=== PATIENT | female | born 1970 | race Caucasian/White ===

== ENCOUNTER 2019-06-13 20:26 | Emergency (ER) | payer OTHER, MEDICAID ==
[~2019-06-13] VITALS: Ht 165.1 cm; Wt 122.5 kg
[~2019-06-13 20:26] MED LIST: CIPROFLOXACIN500 M1 PO; DEPAKOTE; KEPPRA 500 MG500 MG; LASIX; LYRICA100 MG; PERCOCET 5-3251 EACH PO; ZESTORETIC
[2019-06-13 20:42] VITALS: BP 118/67
[2019-06-13] MEDS ORDERED: SYMBICORT160 MCG/4. INH (20:47)
[2019-06-13] MEDS ORDERED: SINGULAIR 10 MG10 M1 PO (20:47)
[2019-06-13] MEDS ORDERED: DIAMOX (20:48)
[2019-06-13] MEDS ORDERED: CLARITIN10 M3 PO (20:48)
[2019-06-13] MEDS ORDERED: RELAFEN DS1000 MG PO (20:49)
[2019-06-13] MEDS ORDERED: ZANAFLEX2 M1 PO (21:08)
== END 2019-06-13 21:24 | disposition home or self-care (01) ==
LOC: M.ERS 20:26
DX: S39.012A Strain of muscle, fascia and tendon of lower back, initial encounter (principal); M79.7 Fibromyalgia; Z86.73 Personal history of transient ischemic attack (TIA), and cerebral infarction without residual deficits; Z87.19 Personal history of other diseases of the digestive system; Z88.1 Allergy status to other antibiotic agents; Z88.5 Allergy status to narcotic agent; Z88.8 Allergy status to other drugs, medicaments and biological substances; X58.XXXA Exposure to other specified factors, initial encounter; Y93.89 Activity, other specified; Y92.89 Other specified places as the place of occurrence of the external cause; Y99.8 Other external cause status

== ENCOUNTER 2021-09-08 18:00 | Inpatient (IN) | payer OTHER, MEDICAID ==
[~2021-09-08] VITALS: Ht 162.6 cm; Wt 132.0 kg
[~2021-09-08 18:00] MED LIST changes: +CLARITIN10 M3 PO; +DIAMOX; +RELAFEN DS1000 MG PO; +SINGULAIR 10 MG10 M1 PO; +SYMBICORT160 MCG/4. INH; +ZANAFLEX2 M1 PO
[2021-09-08 18:09] VITALS: BP 131/77
[2021-09-08] MEDS ORDERED: IBUPROFEN 800800 M1 PO (18:15)
[2021-09-08] MEDS ORDERED: LISINOPRIL20 MG PO (18:15)
[2021-09-08] MEDS ORDERED: VIT D PO (18:16)
[2021-09-08] MEDS ORDERED: B12 ACTIVE1000 MCG PO (18:16)
[2021-09-08] MEDS ORDERED: PLAQUENIL200 MG PO (18:16)
[2021-09-08 18:41] LABS: ABSOLUTE BASOPHILS 0.1 thou/uL (0.0-0.2); ABSOLUTE EOSINOPHILS 0.3 thou/uL (0.0-0.7); ABSOLUTE LYMPHOCYTES 2.9 thou/uL (0.8-5.3); ABSOLUTE MONOCYTES 1.1 thou/uL (0.0-1.2); ABSOLUTE NEUTROPHILS 11.1 thou/uL (1.6-8.1); BASOPHILS 0.9 %; EOSINOPHILS 1.9 %; HEMOGLOBIN 15.3 gm/dL (12.0-15.0); LYMPHOCYTES 18.6 %; MCH 27.9 pg (26.0-34.0); MCHC 31.9 g/dL (28.0-37.0); MCV 87.7 fL (80.0-100.0); MONOCYTES 7.1 %; MPV 7.6 fl. (7.2-11.1); NUCLEATED RBCS 0 /100WBC; PLATELET COUNT* 234 thou/uL (150-400); POLYS 71.5 %; RBC 5.48 mil/uL (4.20-5.00); RDW-CV 14.8 % (10.5-14.5); WBC 15.6 thou/uL (4.0-11.0)
[2021-09-08 18:53] LABS: CALCIUM 8.1 mg/dL (8.5-10.1); CREATININE 0.8 mg/dL (0.6-1.3); POTASSIUM 3.5 mmol/L (3.5-5.1)
[2021-09-08 18:58] LABS: TOTAL BILIRUBIN 0.4 mg/dL (<0.1-1.0); TOTAL PROTEIN 6.2 g/dL (6.4-8.2)
[2021-09-08 19:26] LABS: URINE BILIRUBIN NEGATIVE (Negative); URINE BLOOD NEGATIVE (Negative); URINE CLARITY CLEAR; URINE COLOR YELLOW; URINE GLUCOSE-RANDOM NEGATIVE (Negative); URINE KETONES NEGATIVE (Negative); URINE LEUKOCYTES-REFLEX NEGATIVE (Negative); URINE NITRITE-REFLEX NEGATIVE (Negative); URINE PROTEIN NEGATIVE (Negative); URINE SPECIFIC GRAVITY <= 1.005 (1.005-1.030); URINE UROBILINOGEN 0.2 E.U./dl (0.2-1.0)
[2021-09-08 22:20] VITALS: BP 110/56
[2021-09-08 23:00] VITALS: BP 110/70
[2021-09-09 04:00] VITALS: BP 102/60
[2021-09-09 05:59] LABS: HEMATOCRIT 47.6 % (37.0-47.0); HEMOGLOBIN 14.9 gm/dL (12.0-15.0); MCH 27.9 pg (26.0-34.0); MCHC 31.3 g/dL (28.0-37.0); MCV 89.2 fL (80.0-100.0); RBC 5.34 mil/uL (4.20-5.00)
[2021-09-09 06:30] LABS: ALBUMIN 2.9 g/dL (3.4-5.0); CALCIUM 8.2 mg/dL (8.5-10.1); CREATININE 0.7 mg/dL (0.6-1.3); MAGNESIUM 2.1 mg/dL (1.8-2.4); POTASSIUM 3.4 mmol/L (3.5-5.1); TOTAL BILIRUBIN 0.3 mg/dL (<0.1-1.0); TOTAL PROTEIN 6.3 g/dL (6.4-8.2)
--- NOTE | 2021-09-09 11:01 | EKG ---
[place] [address] ELECTROCARDIOGRAM REPORT Name: VIETPAM Hebert Room: [address] ADM IN ..#: [id number] Admission: 09/08/21 Attend Phys: Indy Bagley, Discharge: Date of : 70 Date of Service: 09/08/21 190 Report #: [id number] THIS REPORT FOR: //name// [facility] ED Test Date: 2021-09-08 Test Time: 19:03:26 Pat Name: PAM LLANOS Department: Room: [facility] Gender: F Employment Trainer: TDS : 1970 Requested By: Pilar Hudson Order Number: [id number] MD: Nelson Peng Measurements Intervals [place] Rate: 88 P: 83 AK: 164 QRS: -84 QRSD: 130 T: 17 QT: 392 QTc: 475 Interpretive Statements Sinus rhythm Probable left atrial enlargement Nonspecific IVCD with LAD Inferior infarct, old Compared to ECG 05/24/2009 23:26:42 Intraventricular conduction delay now present Myocardial infarct finding now present Left-axis deviation persists Electronically Signed On 09-09-2021 11:01:12 BREEDER HEN SERVICE TECHNICIAN by Nelson Peng [email or web address] <ELECTRONICALLY SIGNED> By: Nelson Peng MD, FACC 09/09/21 1101 02 02 Nelson Peng MD, FAC /EPI
[2021-09-09 12:00] VITALS: BP 131/74
== END 2021-09-09 15:15 | disposition still patient (30) | DRG 177 ==
LOC: M.ERS 18:00 → M.TBA-ER 21:06 → M.2W 22:06
PROVIDERS: Physician Assistant; ADMIT Internal Medicine; ATTEND Internal Medicine
DX: J15.6 Pneumonia due to other Gram-negative bacteria (principal); J96.01 Acute respiratory failure with hypoxia; K57.92 Diverticulitis of intestine, part unspecified, without perforation or abscess without bleeding; E44.1 Mild protein-calorie malnutrition; L03.116 Cellulitis of left lower limb; R65.10 Systemic inflammatory response syndrome (SIRS) of non-infectious origin without acute organ dysfunction; Z20.822 Contact with and (suspected) exposure to COVID-19; F17.210 Nicotine dependence, cigarettes, uncomplicated; E66.01 Morbid (severe) obesity due to excess calories; Z68.42 Body mass index [BMI] 45.0-49.9, adult; Z86.73 Personal history of transient ischemic attack (TIA), and cerebral infarction without residual deficits; Z88.6 Allergy status to analgesic agent; Z88.1 Allergy status to other antibiotic agents; Z88.8 Allergy status to other drugs, medicaments and biological substances; Z99.3 Dependence on wheelchair

== ENCOUNTER 2021-09-10 22:02 | Emergency (ER) | payer OTHER, MEDICAID ==
[~2021-09-10] VITALS: Ht 162.6 cm; Wt 86.2 kg
[~2021-09-10 22:02] MED LIST changes: +B12 ACTIVE1000 MCG PO; +IBUPROFEN 800800 M1 PO; +LISINOPRIL20 MG PO; +PLAQUENIL200 MG PO; +VIT D PO
[2021-09-11 01:49] LABS: HEMATOCRIT 47.4 % (37.0-47.0); HEMOGLOBIN 14.8 gm/dL (12.0-15.0); MCH 27.6 pg (26.0-34.0); MCHC 31.2 g/dL (28.0-37.0); MCV 88.3 fL (80.0-100.0); MPV 8.3 fl. (7.2-11.1); NUCLEATED RBCS 0 /100WBC; PLATELET COUNT* 200 thou/uL (150-400); RBC 5.37 mil/uL (4.20-5.00); RDW-CV 14.9 % (10.5-14.5); WBC 21.8 thou/uL (4.0-11.0)
[2021-09-11 01:55] LABS: CALCIUM 8.3 mg/dL (8.5-10.1); CREATININE 0.9 mg/dL (0.6-1.3); POTASSIUM 3.4 mmol/L (3.5-5.1)
[2021-09-11 01:59] LABS: ALBUMIN 2.7 g/dL (3.4-5.0); TOTAL BILIRUBIN 0.5 mg/dL (<0.1-1.0); TOTAL PROTEIN 6.2 g/dL (6.4-8.2)
[2021-09-11 02:21] LABS: ABSOLUTE LYMPHOCYTES 2.8 thou/uL (0.8-5.3); ABSOLUTE MONOCYTES 1.5 thou/uL (0.0-1.2); ABSOLUTE NEUTROPHILS 17.4 thou/uL (1.6-8.1)
[2021-09-11 02:22] LABS: PLATELET ESTIMATE ADEQUATE
[2021-09-11 02:40] VITALS: BP 120/68
== END 2021-09-11 02:40 | disposition home or self-care (01) ==
LOC: M.ERS 22:02
PROVIDERS: Personal Emergency Response Attendant
DX: M79.652 Pain in left thigh (principal); M25.552 Pain in left hip; M54.50 Low back pain, unspecified; M79.89 Other specified soft tissue disorders; M79.7 Fibromyalgia; Z86.73 Personal history of transient ischemic attack (TIA), and cerebral infarction without residual deficits; Z79.899 Other long term (current) drug therapy; Z88.1 Allergy status to other antibiotic agents; Z88.8 Allergy status to other drugs, medicaments and biological substances; W17.89XA Other fall from one level to another, initial encounter; Y93.E8 Activity, other personal hygiene; Y92.091 Bathroom in other non-institutional residence as the place of occurrence of the external cause; Y99.8 Other external cause status